=== PATIENT | male | born 1965 | race Caucasian/White ===

== ENCOUNTER → 2017-10-21 00:46 | Outpatient (CLI) | payer BC, SELFPAY ==
[2017-10-21 15:17] LABS: TSH (W/Ref FT4) 8.45 uIU/mL (0.358-3.74)
[2017-10-21 15:36] LABS: FREE T4 1.06 ng/dL (0.76-1.46)
[2017-10-24 10:04] LABS: PSA, Screening 2.1 ng/ml (0-3.5)
[2017-10-24 12:45] LABS: Hepatitis C Ab w Rflx HCV PCR Negative (NEGAT)
== END ==
PROVIDERS: Family Medicine; PCP Family Medicine; Visit Provider Family Medicine
DX: E03.9 Hypothyroidism, unspecified (principal); Z12.5 Encounter for screening for malignant neoplasm of prostate; Z11.59 Encounter for screening for other viral diseases
CPT/HCPCS: 36415; 84153; 86803; 84439; 84443

== ENCOUNTER 2018-10-20 02:05 | Outpatient (CLI) | payer BC, SELFPAY ==
--- NOTE | 2018-10-20 15:15 | DI.CTLCSR_ITS ---
SYMPTOMS/DIAGNOSIS: 28 PACK YEAR HX SMOKER, F17.[address] FOR LUNG CANCER SCREENING: A low dose screening exam was performed. There are no prior comparison exams. The heart size is normal. No significant coronary artery or aortic calcifications are seen. There are no pleural or pericardial effusions or evidence of adenopathy. There are minimal underlying emphysematous changes. There are no significant fibrotic changes. No pulmonary nodules are identified. IMPRESSION: Lung RADS Category I, negative. Annual low dose screening CT is recommended.
[2018-10-20 16:30] LABS: Calculated LDL 137 mg/dL; Cholesterol 201 mg/dL (50-200); Glucose 93 mg/dL (70-100); HDL Cholesterol 38 mg/dL (40-60); Magnesium 1.8 mg/dL (1.8-2.4); Triglyceride 131 mg/dL (30-150)
[2018-10-20 17:52] LABS: TSH (W/Ref FT4) 10.67 uIU/mL (0.36-3.74)
[2018-10-20 18:16] LABS: FREE T4 0.92 ng/dL (0.76-1.46)
== END 2018-10-20 02:25 ==
PROVIDERS: PCP Family Medicine; Visit Provider Family Medicine
DX: Z12.2 Encounter for screening for malignant neoplasm of respiratory organs (principal); F17.200 Nicotine dependence, unspecified, uncomplicated; J43.9 Emphysema, unspecified; E03.9 Hypothyroidism, unspecified; K21.9 Gastro-esophageal reflux disease without esophagitis; Z13.1 Encounter for screening for diabetes mellitus
CPT/HCPCS: 36415; 80061; 82947; 83721; G0297; 83735; 84439; 84443

== ENCOUNTER 2019-11-06 01:05 | Outpatient (CLI) | payer BC, SELFPAY ==
--- NOTE | 2019-11-06 06:15 | DI.US_ITS ---
EXAM: US AAA SCREENING CLINICAL HISTORY: use of tobacco/ screening FOR AAA,F17.200 COMPARISON: CT CT CHEST LUNG CANCER SCREEN from 10/20/2018 FINDINGS: Abdominal Aorta: Proximal: 2.7 cm Iliacs: Right: 1.4 cm Left: 1.2 cm IMPRESSION: No evidence of abdominal aortic aneurysm. DATA REPOSITORY:
--- NOTE | 2019-11-06 06:15 | DI.CTLCSR_ITS ---
EXAM: CT CHEST LUNG CANCER SCREEN CLINICAL HISTORY: Screening for lung cancer,CURRENT SMOKER, F17.200 TECHNIQUE: Imaging Protocol: Axial computed tomography images with coronal and sagittal reformatted images were created and reviewed COMPARISON: CT CT CHEST LUNG CANCER SCREEN from 10/20/2018 FINDINGS: Tracheobronchial tree: Mild bronchiectasis at the medial right lung base. Mediastinum and Judy: No dominant adenopathy or fluid collection. Pulmonary parenchyma: There are mild emphysematous changes. There is a focal peripheral area of tree -in-bud opacities in the inferior right lower but no evidence of a mass. Lung Nodules: None. Pleura: No effusion or pneumothorax. Heart: The heart is not dilated. No coronary artery calcifications are seen. Aorta: Thoracic aorta non-dilated. Upper abdomen: Unremarkable. Bones: Within normal limits. Soft Tissues: Unremarkable. IMPRESSION: Peripheral area of tree-in-bud opacities in the right upper lobe may be secondary to infectious or in flammatory causes. Lung RADS Cat 1 - Negative: No nodules and definitely benign nodules Lung-RADS 1.0 CATEGORIES: Category 0 - Prior chest CT exam(s) being located for comparison. Category 1 - Annual screening in 12 months. No nodules or definitely benign nodules. Category 2 - Annual screening in 12 months. Benign appearance. Nodules with low likelihood of becomin g active cancer. Category 3 - 6-month follow-up. Probably benign. Short-term follow-up suggested. Nodules with low lik elihood of becoming active cancer. Category 4A - 3-month follow-up and CT/PET if >8 mm in size. Suspicious finding. Findings which requi re additional testing. Category 4B - Findings which require additional testing and tissue sampling. Suspicious finding. C Added to Any of the Above - History of prior lung cancer screening. S Added to Any of the Above - Significant unexpected other finding. RADIATION DOSE DELIVERED: 95.26mGy.cm Total DLP DATA REPOSITORY: All CT scans at this facility are submitted to the National Radiology Data Registry (NRDR) Dose Index Registry (DIR) with the [employer] (ACR). RADIATION OPTIMIZATION: All CT scans at this facility use at least one of these dose optimization te chniques: automated exposure control; mA and/or kV adjustment per patient size (includes targeted exa ms where dose is matched to clinical indication); or iterative reconstruction.
== END 2019-11-06 01:25 ==
PROVIDERS: PCP Family Medicine; Visit Provider Family Medicine
DX: Z12.2 Encounter for screening for malignant neoplasm of respiratory organs (principal); F17.200 Nicotine dependence, unspecified, uncomplicated; R91.8 Other nonspecific abnormal finding of lung field
CPT/HCPCS: 76706; G0297

== ENCOUNTER 2019-12-07 02:12 | Outpatient (CLI) | payer BC, SELFPAY ==
[2019-12-07 17:34] LABS: Calculated LDL 180 mg/dL (<100); Cholesterol 238 mg/dL (<200); Glucose 82 mg/dL (74-106); HDL Cholesterol 40 mg/dL (40-60); Triglyceride 91 mg/dL (<150)
[2019-12-07 18:10] LABS: FREE T4 1.01 ng/dL (0.76-1.46)
== END 2019-12-07 02:32 ==
PROVIDERS: PCP Family Medicine; Visit Provider Family Medicine
DX: E03.9 Hypothyroidism, unspecified (principal); E78.5 Hyperlipidemia, unspecified; R73.9 Hyperglycemia, unspecified; Z12.5 Encounter for screening for malignant neoplasm of prostate; Z72.0 Tobacco use
CPT/HCPCS: 36415; 80061; 82947; 84153; 84439; 84443

== ENCOUNTER 2020-11-14 02:43 | Outpatient (CLI) | payer BC, SELFPAY ==
[2020-11-14 16:13] LABS: Calculated LDL 103 mg/dL (<100); Cholesterol 154 mg/dL (<200); HDL Cholesterol 42 mg/dL (40-60); TSH (W/Ref FT4) 6.06 uIU/mL (0.36-3.74); Triglyceride 49 mg/dL (<150)
[2020-11-14 16:35] LABS: FREE T4 1.13 ng/dL (0.76-1.46)
[2020-11-14 18:45] LABS: CREATININE 1.2 mg/dL (0.70-1.30)
== END 2020-11-14 02:44 | disposition home or self-care (01) ==
LOC: LBO 02:43
PROVIDERS: PCP Family Medicine; Visit Provider Family Medicine
DX: R91.8 Other nonspecific abnormal finding of lung field; E03.9 Hypothyroidism, unspecified; E78.5 Hyperlipidemia, unspecified
CPT/HCPCS: 36415; 80061; 82565; 84439; 84443

== ENCOUNTER 2021-11-20 01:55 | Outpatient (CLI) | payer BC, SELFPAY ==
--- OUTSIDE RECORDS SUMMARY | 2021-11-20 02:07 | XMS_ITS | Encounter Summary ---
:1965 Author Organization [facility] Address [address] [place] [address] Care Team Providers Name Role Phone Unknown, Provider Primary Care Provider Encounter Details Date Type Department Care Team Description 04/25/2009 Orders Only [facility] Pk Frerari DO Laboratory Services - [address] [place] [address] [address] [facility] [place] [address] [phone] Social History Tobacco Use Types Packs/Day Years Used Date Never Assessed Sex Assigned at Date Recorded Not on file documented as of this encounter Plan of Treatment Not on filedocumented as of this encounter Procedures Procedure Name Priority Date/Time Associated Diagnosis Comme [facility] SURGICAL PATHOLOGY Routine 04/25/2009 0:00 EST Re sults for this procedure are i n the results section. documented in this encounter Results SURGICAL PATHOLOGY (04/25/2009 0:00 EST) Pathologist [facility] Pathology SURGICAL PATHOLOGY REPORT ? OFELIA WEBB Report: Reports generated via electr ITDatabase interface contain original data; ? LAB however they are lacking the format of the original report. ? Caution should be taken when reading/interpreting unformatted reports. ? Name: ? CRISTY, JUSTIN D JR ? Accession #: ? [id number] ? : ? 1965 (Age: 43) ??M ? Collec t Date: ? 04/25/2009 ? Location: ? [facility] ? Re ceive Date: ? 04/25/2009 ? Provider: PK MITZ DO ? Copy to: MADISYN VOZZELLI MD ? Final Pathologic Diagnosis: ? A. ?Duodenum, s econd portion, biopsy: ? 1. ?Acute pepti c duodenitis. See comment. ? B. ?Stomach, an trum, biopsy: ? 1. ?Antral-type gastric mucosa with mild, chronic inflammation and ? intestinal metaplasia. ??See comment. ? 2. ? No Helicobacter pyl emeli-like organisms identified by immunohistochemistry. See comment. ? 3. ? No dysplasia is scout ntified. ? C. ?Esophagogas tric junction, biopsy: ? 1. ?Gastric-typ e mucosa with no specific pathologic features. ? 2. ? No Helicobacter pyl emeli-like microorganisms identified by routine H & E ?? stains. ? D. ?Esophagus, 36 cm, biopsy: ? 1. ?Squamous mu cosa with no specific pathologic features. ? Comment: ? An aggregate of eosin ophils is identified in the lamina propria of the ? antral biopsy (specimen B). The clinical significance of this finding is ? unclear. Clinical correlatio n is essential. Immunohistochemical staining was ? performed on this case to fu rther characterize the nature the lesion in specimen B and to shed further light on the potential etiology of the pathologic findings in the duodenal biopsy (spec imen A). ??Positive and negative controls stained ? appropriately. ? Block ?Antibody (Clone) ? Result ? B ?H. py giovanny (polyclonal, [facility]) ? Negative ? NOTE: ??One or more of the reagents used in immunohistochemical testing in this case may not have been clear ed or approved by the U.S. Food and Drug ? Administration (FDA). ??The FDA has determined that such clearance or approval is not necessary. ??These tests are used for clinical purposes. ??They should not be regarded as investigational or for research. ??These reagents' ??performance ? characteristics have been de termined by [facility]. ??This ? laboratory is certified unde r the Clinical Laboratory Improvement Amendments of 1988 (CLIA-88) as qualified to perform high complexity clinical laboratory ? testing. ? Document reviewed and electr onically signed by: ? JORDANA FLORES MD ? Report ??Date: 05/04/2009 21 :39 ? By the signature above, the attending physician certifies that he/she has ? personally conducted a gross and/or microscopic examination of the described ? specimens and rendered or co nfirmed the above diagnosis. ? Specimen(s) Received: ? A. ?2nd portion of duodenum ? B. ? Antrum ? C. ? R/O Shirley's at EG J ? D. ? Bx at 36 cm ? Clinical History: ? Top of fold erythemat ous; ? thickened duodenum on CT ? Gross Description: ? Received in Andrea' s solution labelled Cristy Justin and 2nd ? portion of duodenum are thr ee pink-torres irregular soft tissues ranging from 0.1 x 0.1 x 0.1 cm to 0.3 x 0.2 x 0.1 cm. ??Submitted in toto as (A). ? Received in [employer]'s solut ion labelled Justin Muniz and antrum are two pink-torres irregular soft tiss ues, 0.3 x 0.1 x 0.1 cm and 0.3 x 0.2 x 0.1 cm. ? Submitted in toto as (B). ? Received in Andrea's solut ion labelled Henning, Justin and R/O Shirley's ?? at EGJ is a single 0.2 x 0. 2 x 0.2 cm pink-torres irregular soft tissue. ? Submitted in toto as (C). ? Received in Andrea's solut ion labelled Cristy, Justin and biopsy at 36 ?? cm is a single 0.2 x 0.1 x 0.1 cm pink-torres irregular soft tissue. ??Submitted in toto as (D). ??(Sejal Loaiza)/ val ? End of Report ? Specimen Performing Organization Address City/[facility]/ZIP Code Phon e Number [facility] [address] [place] [address] SERVICES [facility] [address] [place] [address] documented in this encounter Visit Diagnoses Not on filedocumented in this encounter Care Teams Quality Assurance Clerk Relationship Specialty Start Date End Date Unknown, Provider, PCP - General 04/25/09 documented as of this encounter
--- OUTSIDE RECORDS SUMMARY | 2021-11-20 02:07 | XMS_ITS | Clinical Summary ---
:1965 Author Organization [facility] Address [address] [place] [address] Care Team Providers Name Role Phone Unknown, Provider Primary Care Provider Social History Tobacco Use Types Packs/Day Years Used Date Never Assessed Sex Assigned at Date Recorded Not on file Plan of Treatment Not on file Care Teams Cardiac Cath Technician Relationship Specialty Start Date End Date Unknown, Provider, PCP - General 04/25/09
--- OUTSIDE RECORDS SUMMARY | 2021-11-20 02:07 | XMS_ITS | Encounter Summary ---
:1965 Author Organization [facility] Address [address] [place] [address] Care Team Providers Name Role Phone Unknown, Provider Primary Care Provider Encounter Details Date Type Department Care Team Description 12/08/2019 Lab Requisition [facility] Outr Resulting Lab, Pathology & Laboratory Provider [facility] [address] [place] [address] Social History Tobacco Use Types Packs/Day Years Used Date Never Assessed Sex Assigned at Date Recorded Not on file documented as of this encounter Plan of Treatment Not on filedocumented as of this encounter Procedures Procedure Name Priority Date/Time Associated Comments Diagnosis PSA TOTAL, Routine 12/07/2019 16:15 Results for this DIAGNOSTIC EDT procedure are i n the results section. documented in this encounter Results PSA TOTAL, DIAGNOSTIC (12/07/2019 16:15 EDT) Pathologist Sig nature PSA 1.0 0.0 - 3.5 ng/mL [facility] Specimen Blood - Venous blood (substance) Narrative [facility] - 12/10/2019 12:37 EDT NOTE: Serum PSA concentration should not be in terpreted as absolute evidence for the presence or absence of malignant disease. Assayed on Siemens ADVIA Centaur XPT usi ng chemiluminescent technology.??Values obtained by using different assay methods cannot be used interchangeably. Performing Organization Address City/State/ZIP Code Phon e Number [facility] [address] [place] [address] SERVICES documented in this encounter Visit Diagnoses Not on filedocumented in this encounter Care Teams Client Solutions Director Relationship Specialty Start Date End Date Unknown, Provider, PCP - General 04/25/09 documented as of this encounter
[2021-11-20 15:25] LABS: CREATININE 1.2 mg/dL (0.70-1.30); Calculated LDL 108 mg/dL (<100); Cholesterol 167 mg/dL (<200); HDL Cholesterol 43 mg/dL (40-60); Potassium 4.1 mmol/L (3.5-5.1); TSH (W/Ref FT4) 11.74 uIU/mL (0.36-3.74); Triglyceride 81 mg/dL (<150)
[2021-11-20 15:43] LABS: FREE T4 1.15 ng/dL (0.76-1.46)
[2021-11-20 22:31] LABS: PSA, Screening 0.8 ng/mL (<=3.5)
== END 2021-11-20 01:56 | disposition home or self-care (01) ==
LOC: LBO 01:55
PROVIDERS: PCP Family Medicine; Visit Provider Family Medicine
DX: E78.5 Hyperlipidemia, unspecified (principal); E03.9 Hypothyroidism, unspecified; I10 Essential (primary) hypertension; Z12.5 Encounter for screening for malignant neoplasm of prostate
CPT/HCPCS: 36415; 80061; 84153; 82565; 84132; 84439; 84443

== ENCOUNTER 2022-07-09 00:49 | Outpatient (CLI) | payer BC, SELFPAY ==
--- NOTE | 2022-07-09 08:15 | DI.RAD_ITS ---
Exam(s) XR LUMBAR SPINE COMPLETE EXAM: XR LUMBAR SPINE COMPLETE CLINICAL HISTORY: low back pain,M54.50. TECHNIQUE: 2D digital imaging was performed. COMPARISON: No exams were available for comparison FINDINGS: Five views: No evidence of acute fracture, listhesis, nor pars defects. There is multilevel disc space narrowing . Most evident at L2-3 level where there is asymmetric narrowing on the lateral left side of the dis c space. Other disc space narrowing is more uniform. Mild degenerative changes in the facet joints. No significant scoliosis. SI joints unremarkable. No osseous lesions. IMPRESSION: Multilevel degenerative disc disease. Asymmetric disc space narrowing on the left side of L2-3 level. This may result in asymmetric forami nal stenosis on the left side at this level. DATA REPOSITORY: RADIATION DOSE DELIVERED:
== END 2022-07-09 01:09 ==
LOC: DI 00:50
PROVIDERS: PCP Family Medicine; Visit Provider Family Medicine
DX: G89.29 Other chronic pain (principal); M54.50 Low back pain, unspecified
CPT/HCPCS: 72110

== ENCOUNTER 2022-07-09 02:07 | Outpatient (CLI) | payer BC, SELFPAY ==
[2022-07-09 15:21] LABS: Anion Gap 7.1 mmol/L (3-11); BUN 13 mg/dL (7-18); CO2 25.9 mmol/L (21.0-32.0); CREATININE 1.3 mg/dL (0.70-1.30); Calcium 9.1 mg/dL (8.5-10.1); Chloride 104 mmol/L (98-107); Estimated GFR 63.68 (mL/min/1.73m2); Glucose 92 mg/dL (74-106); Potassium 4.1 mmol/L (3.5-5.1); Sodium 137 mmol/L (136-145); TSH (W/Ref FT4) 6.77 uIU/mL (0.36-3.74)
[2022-07-09 15:28] LABS: Hemoglobin A1C 5.7 % (<5.7)
[2022-07-09 15:58] LABS: FREE T4 1.27 ng/dL (0.76-1.46)
== END 2022-07-09 02:08 | disposition home or self-care (01) ==
LOC: LBO 02:07
PROVIDERS: Family Medicine; PCP Family Medicine; Visit Provider Family Medicine
DX: E03.9 Hypothyroidism, unspecified (principal); E66.9 Obesity, unspecified; R73.01 Impaired fasting glucose
CPT/HCPCS: 36415; 80048; 83036; 84439; 84443

== ENCOUNTER → 2022-10-29 01:00 | Outpatient (CLI) | payer BC, SELFPAY ==
--- NOTE | 2022-10-29 | DI.MRI_ITS ---
Exam(s) MR LUMBAR SPINE WO EXAM: MR LUMBAR SPINE WO CLINICAL HISTORY: CHRONIC RACHLE LOW BACK PAIN WITH LT SIDED SCIATICA, M54.2, G89.29. TECHNIQUE: Multiplanar multisequence MRI of the Lumbar spine was performed. COMPARISON: CR XR LUMBAR SPINE COMPLETE from 07/09/2022 FINDINGS: Bones: The last intervertebral disc space is designated the L5/S1 level for the numbering purpose of this examination. The vertebral body heights are well maintained. Alignment is satisfactory. The ma rrow signal characteristics are unremarkable. Degenerative signal changes in the endplates at the L2 -3 level.. Cord: The conus tip ends at the T12 level. It is of normal size and signal intensity. T12-L1: No disc herniations or bulges are present. No central spinal canal or neural foraminal stenos is. L1-2: Small endplate osteophytes. Slight disc bulging. No central spinal canal or neural foraminal stenosis. L2-3: Mild to moderate loss of disc height, eccentric toward the left. Mild broad-based disc bulging . Mild facet joint degenerative changes. Mild left neural foraminal narrowing. No central canal st enosis.. L3-4: Minimal disc bulging. No central spinal canal or neural foraminal stenosis. L4-5: Minimal disc bulging. No central spinal canal or neural foraminal stenosis. L5-S1: No disc herniations or bulges are present. Mild facet degenerative changes. No central spina l canal or neural foraminal stenosis. The visualized SI joints and sacrum are well maintained. Soft tissues: The paraspinal soft tissues are unremarkable. IMPRESSION: Degenerative disc changes greatest at L2-3 eccentric toward the left. Mild left neural foraminal elliot rowing at this level. No central canal stenosis. No focal disc herniation. DATA REPOSITORY:
== END ==
PROVIDERS: PCP Nurse Practitioner Family; Visit Provider Nurse Practitioner
DX: M51.36 Other intervertebral disc degeneration, lumbar region (principal); M54.2 Cervicalgia
CPT/HCPCS: 72148

== ENCOUNTER 2022-12-03 01:49 | Outpatient (CLI) | payer BC, SELFPAY ==
[2022-12-03 12:33] LABS: Calculated LDL 82 mg/dL (<100); Cholesterol 133 mg/dL (<200); HDL Cholesterol 40 mg/dL (40-60); Triglyceride 55 mg/dL (<150)
== END 2022-12-03 01:50 | disposition home or self-care (01) ==
LOC: LOS 01:49
PROVIDERS: PCP Nurse Practitioner Family; Visit Provider Nurse Practitioner Family
DX: Z13.220 Encounter for screening for lipoid disorders (principal)
CPT/HCPCS: 36415; 80061

== ENCOUNTER 2023-04-27 16:33 | Outpatient (CLI) | payer BC, SELFPAY ==
--- NOTE | 2023-04-27 06:00 | DI.RAD_ITS ---
Exam(s) XR PAIN CLINIC LUMBAR SP 2V EXAM: XR PAIN CLINIC LUMBAR SP 2V CLINICAL HISTORY: Dx: Lumbar Radiculopathy TECHNIQUE: 2D and realtime digital imaging was performed. Radiologist not present. CONTRAST MATERIAL: None. COMPARISON: No exams were available for comparison FINDINGS: Fluoroscopy was provided for pain management therapy. Please refer to procedure report or details. Radiation Exposure Index: Ka,r=7.16 mGy IMPRESSION: As above. RADIATION DOSE DELIVERED:
[2023-04-27 16:59] VITALS: BP 135/83; PULSE 79; RESP 20; TEMP 36.7; O2SAT 98
--- NOTE | 2023-04-27 17:23 | PDOC.PAIN_ITS ---
Date of service: 04/27/23 Time of Service: 17:23 Pain Managment Procedure Note Procedure Note Procedure Note: PROCEDURE NOTE LUMBAR EPIDURAL STEROID INJECTION Date of Service: April 27, 2023 Patient:Justin Huber? Provider: Adithya Butler DO, MPH Justin Muniz has been referred to the [facility] for a lumbar epidural steroid injection. Pre-operative diagnosis: Lumbosacral Radiculopathy Post-operative diagnosis: Same Pre-Procedure Pain: VAS= 5 /10 Comments: I previously evaluated the patient in the office. Justin was interviewed and the medical record was reviewed.? There were no medical, pharmacologic, radiographic or other structural contraindications to attempting fluoroscopically guided Lumbar epidural steroid injection.? Risks, potential side effects, indications, and potential benefits of the procedure were reviewed with Justin.? Questions and concerns were addressed.? After it was clear that Justin was fully informed about the procedure, the printed consent form was signed by the patient and myself.? Justin was placed in the prone position on the fluoroscopy table and automated blood pressure cuff and pulse oximeter applied. The skin entry point for entering/approaching the epidural space for the lumbar epidural steroid injection was marked. Following thorough chlorhexadine preparation of the skin and draping and 1% lidocaine infiltration of the skin entry point and subcutaneous tissues, an 18 gauge Touhy needle was placed and advanced under fluoroscopic guidance and with loss of resistance technique into the L5-S1 epidural space. Needle tip placement and depth were aided and confirmed by fluoroscopy. There was no paresthesia or return of blood or CSF through the needle. 1 mls of Omnipaque 240 was injected with clear epidural spread confirmed with fluoroscopy. 80 mg of Depo-Medrol was? injected. This was followed by 1 ml of preservative-free normal saline to flush the steroid out of the needle. There was no unusual discomfort expressed by Justin. The needle was withdrawn without difficulty. (49 mls of Omnipaque was wasted) Justin was observed and was without hemodynamic, neurologic, or allergic reactions.? Fluoroscopic images were digitally archived. Justin's vital signs were stable throughout the procedure and were as recorded in nursing records. Follow up plans and appointments were discussed with Justin. Post procedure instruction was given as documented in nursing records and having met discharge criteria Justin was discharged from the [facility] Management Center. COMMENTS: No apparent complications. Post-procedure pain: VAS= 0/10. Justin to contact [facility] as needed. If at least 50% improvement in pain and/or function for at least 3 months is achieved, this procedure can be repeated. I personally performed this entire procedure. ADITHYA BUTLER DO, MPH ABPMR-subspecialty board certification in Pain Medicine [facility]
[2023-04-27 17:29] VITALS: BP 120/80; PULSE 77; RESP 20; O2SAT 97
[2023-04-27] MEDS: Epidural Tray 1 EACH MC (17:30)
[2023-04-27] MEDS: Omnipaque 240 MG/ML 50 ML BTL IJ (17:30)
[2023-04-27] MEDS: methylPREDNISolone ACETATE 80 MG/ML VIAL IJ (17:30)
== END 2023-04-27 16:34 | disposition home or self-care (01) ==
PROVIDERS: PCP Nurse Practitioner Family; Visit Provider Preventive Medicine Occupational Medicine
DX: M54.17 Radiculopathy, lumbosacral region (principal)
CPT/HCPCS: 00123; 62323; 72100; J1040; Q9967

== ENCOUNTER 2023-08-31 11:40 | Outpatient (CLI) | payer BC, SELFPAY ==
[2023-08-31 11:58] VITALS: BP 127/83; PULSE 65; RESP 20; TEMP 36.7; O2SAT 96
[2023-08-31 12:29] VITALS: BP 122/74; PULSE 71; RESP 28; O2SAT 100
--- NOTE | 2023-08-31 12:29 | PDOC.PAIN ---
Date of service: 08/31/23 Time of Service: 12:29 Pain Managment Procedure Note Procedure Note Procedure Note: PROCEDURE NOTE LUMBAR EPIDURAL STEROID INJECTION Date of Service: August 31, 2023 Patient:Justin Huber? Provider: Adithya Butler DO, MPH Justin Muniz has been referred to the [facility] Center for a lumbar epidural steroid injection. Pre-operative diagnosis: Lumbosacral Radiculopathy Post-operative diagnosis: Same Pre-Procedure Pain: VAS= 7 /10 Comments: His last lumbar epidural steroid injection was on 04/27/23 and he received >50% pain relief for >3 months. Justin was interviewed and the medical record was reviewed.? There were no medical, pharmacologic, radiographic or other structural contraindications to attempting fluoroscopically guided Lumbar epidural steroid injection.? Risks, potential side effects, indications, and potential benefits of the procedure were reviewed with Justin.? Questions and concerns were addressed.? After it was clear that Justin was fully informed about the procedure, the printed consent form was signed by the patient and myself.? Justin was placed in the prone position on the fluoroscopy table and automated blood pressure cuff and pulse oximeter applied. The skin entry point for entering/approaching the epidural space for the lumbar epidural steroid injection was marked. Following thorough chlorhexadine preparation of the skin and draping and 1% lidocaine infiltration of the skin entry point and subcutaneous tissues, an 18 gauge Touhy needle was placed and advanced under fluoroscopic guidance and with loss of resistance technique into the L5-S1 epidural space. Needle tip placement and depth were aided and confirmed by fluoroscopy. There was no paresthesia or return of blood or CSF through the needle. 1 mls of Omnipaque 240 was injected with clear epidural spread confirmed with fluoroscopy. 80 mg of Depo-Medrol was? injected. This was followed by 1 ml of preservative-free normal saline to flush the steroid out of the needle. There was no unusual discomfort expressed by Justin. The needle was withdrawn without difficulty. (49 mls of Omnipaque was wasted) Justin was observed and was without hemodynamic, neurologic, or allergic reactions.? Fluoroscopic images were digitally archived. Justin's vital signs were stable throughout the procedure and were as recorded in nursing records. Follow up plans and appointments were discussed with Justin. Post procedure instruction was given as documented in nursing records and having met discharge criteria Justin was discharged from the [facility] Management Center. COMMENTS: No apparent complications. Post-procedure pain: VAS= 0/10. Justin to contact [facility] as needed. If at least 50% improvement in pain and/or function for at least 3 months is achieved, this procedure can be repeated. I personally performed this entire procedure. ADITHYA BUTLER DO, MPH ABPMR-subspecialty board certification in Pain Medicine [facility]
[2023-08-31] MEDS: Epidural Tray 1 EACH MC (12:30)
--- NOTE | 2023-08-31 12:30 | DI.RAD_ITS ---
Exam(s) XR PAIN CLINIC LUMBAR SP 2V EXAM: XR PAIN CLINIC LUMBAR SP 2V CLINICAL HISTORY: Dx: Lumbar Radiculopathy TECHNIQUE: 2D and realtime digital imaging was performed. Radiologist not present. CONTRAST MATERIAL: None. COMPARISON: No exams were available for comparison FINDINGS: Fluoroscopy was provided for pain management therapy. Please refer to procedure report or details. Radiation Exposure Index: Ka,r=6.67 mGy IMPRESSION: As above. RADIATION DOSE DELIVERED:
[2023-08-31] MEDS: Omnipaque 240 MG/ML 50 ML BTL IJ (12:31)
[2023-08-31] MEDS: methylPREDNISolone ACETATE 80 MG/ML VIAL IJ (12:31)
== END 2023-08-31 11:41 | disposition home or self-care (01) ==
LOC: PC 11:40
PROVIDERS: PCP Nurse Practitioner Family; Visit Provider Preventive Medicine Occupational Medicine
DX: M54.17 Radiculopathy, lumbosacral region (principal)
CPT/HCPCS: 62323; 72100; J1010; Q9967

== ENCOUNTER 2023-11-25 15:25 | Outpatient (CLI) | payer BC, SELFPAY ==
[2023-11-25 15:29] LABS: Hemoglobin A1C 5.5 % (<5.7)
[2023-11-25 15:57] LABS: Calculated LDL 102 mg/dL (<100); Cholesterol 156 mg/dL (<200); HDL Cholesterol 41 mg/dL (40-60); TSH (W/Ref FT4) 5.56 uIU/mL (0.36-3.74); Triglyceride 68 mg/dL (<150)
[2023-11-25 16:28] LABS: FREE T4 1.18 ng/dL (0.76-1.46)
== END 2023-11-25 15:26 | disposition home or self-care (01) ==
LOC: LBO 15:32
PROVIDERS: PCP Nurse Practitioner Family; Visit Provider Nurse Practitioner Family
DX: Z13.1 Encounter for screening for diabetes mellitus (principal); E03.9 Hypothyroidism, unspecified; Z13.220 Encounter for screening for lipoid disorders; E78.5 Hyperlipidemia, unspecified
CPT/HCPCS: 36415; 80061; 83036; 84439; 84443

== ENCOUNTER 2023-12-14 14:28 | Outpatient (CLI) | payer BC, SELFPAY ==
--- NOTE | 2023-12-14 06:00 | DI.RAD_ITS ---
Exam(s) XR PAIN CLINIC LUMBAR SP 2V EXAM: XR PAIN CLINIC LUMBAR SP 2V CLINICAL HISTORY: DX: Lumbar Radiculopathy TECHNIQUE: 2D and realtime digital imaging was performed. Radiologist not present. CONTRAST MATERIAL: None. COMPARISON: No exams were available for comparison FINDINGS: Fluoroscopy was provided for pain management therapy. Please refer to procedure report or details. Radiation Exposure Index: Ka,r=8.46 mGy IMPRESSION: As above. RADIATION DOSE DELIVERED:
[2023-12-14 15:15] VITALS: BP 138/82; PULSE 79; RESP 20; TEMP 37.2; O2SAT 99
[2023-12-14 15:42] VITALS: PULSE 73; RESP 22; O2SAT 98
[2023-12-14 15:45] VITALS: BP 149/79; PULSE 74; RESP 19; O2SAT 99
[2023-12-14 15:46] VITALS: BP 135/83; PULSE 70; PULSE 78; RESP 23; O2SAT 100
[2023-12-14 15:47] VITALS: PULSE 73; RESP 24; O2SAT 98
[2023-12-14 15:50] VITALS: PULSE 77; RESP 28; O2SAT 97
[2023-12-14] MEDS: Epidural Tray 1 EACH MC (15:55)
[2023-12-14] MEDS: methylPREDNISolone ACETATE 80 MG/ML VIAL IJ (15:55)
[2023-12-14] MEDS: Omnipaque 240 MG/ML 50 ML BTL IJ (15:55)
--- NOTE | 2023-12-14 15:57 | PDOC.PAIN_ITS ---
Date of service: 12/14/23 Time of Service: 15:57 Pain Managment Procedure Note Procedure Note Procedure Note: PROCEDURE NOTE LUMBAR EPIDURAL STEROID INJECTION Date of Service: December 14, 2023 Patient:Justin Huber? Provider: Adithya Butler DO, MPH Justin Muniz has been referred to the [facility] for a lumbar epidural steroid injection. Pre-operative diagnosis: Lumbosacral Radiculopathy ICD-10 M54.16 Post-operative diagnosis: Same Pre-Procedure Pain: VAS= 6 /10 Comments: He last had this procedure on 08/31/23 and had >3 months of >50% functional improvement. Justin was interviewed and the medical record was reviewed.? There were no medical, pharmacologic, radiographic or other structural contraindications to attempting fluoroscopically guided Lumbar epidural steroid injection.? Risks, potential side effects, indications, and potential benefits of the procedure were reviewed with Justin.? Questions and concerns were addressed.? After it was clear that Justin was fully informed about the procedure, the printed consent form was signed by the patient and myself.? Justin was placed in the prone position on the fluoroscopy table and automated blood pressure cuff and pulse oximeter applied. The skin entry point for entering/approaching the epidural space for the lumbar epidural steroid injection was marked. Following thorough chlorhexadine preparation of the skin and draping and 1% lidocaine infiltration of the skin entry point and subcutaneous tissues, an 18 gauge Touhy needle was placed and advanced under fluoroscopic guidance and with loss of resistance technique into the L5-S1 epidural space. Needle tip placement and depth were aided and confirmed by fluoroscopy. There was no paresthesia or return of blood or CSF through the needle. 1 mls of Omnipaque 240 was injected with clear epidural spread confirmed with fluoroscopy. 80 mg of Depo-Medrol was? injected. This was followed by 1 ml of preservative-free normal saline to flush the steroid out of the needle. There was no unusual discomfort expressed by Justin. The needle was withdrawn without difficulty. (49 mls of Omnipaque was wasted) Justin was observed and was without hemodynamic, neurologic, or allergic reactions.? Fluoroscopic images were digitally archived. Justin's vital signs were stable throughout the procedure and were as recorded in nursing records. Follow up plans and appointments were discussed with Justin. Post procedure instruction was given as documented in nursing records and having met discharge criteria Justin was discharged from the [facility]. COMMENTS: No apparent complications. Post-procedure pain: VAS= 0/10. Justin to contact [facility] as needed. If at least 50% improvement in pain and/or function for at least 3 months is achieved, this procedure can be repeated. I personally performed this entire procedure. ADITHYA BUTLER DO, MPH ABPMR-subspecialty board certification in Pain Medicine [facility]
== END 2023-12-14 14:29 | disposition home or self-care (01) ==
LOC: PC 14:29
PROVIDERS: PCP Nurse Practitioner Family; Visit Provider Preventive Medicine Occupational Medicine
DX: M54.16 Radiculopathy, lumbar region (principal)
CPT/HCPCS: 62323; 72100; J1010; Q9967

== ENCOUNTER 2024-05-15 15:18 | Outpatient (CLI) | payer BC, SELFPAY ==
[2024-05-15 16:52] LABS: Calculated LDL 79 mg/dL (<100); Cholesterol 147 mg/dL (<200); HDL Cholesterol 42 mg/dL (40-60); TSH (W/Ref FT4) 2.97 uIU/mL (0.36-3.74); Triglyceride 133 mg/dL (<150)
[2024-05-15 18:01] LABS: Hemoglobin A1C 5.4 % (<5.7)
[2024-05-15 23:10] LABS: PSA, Screening 0.8 ng/mL (<=4.5)
== END 2024-05-15 15:19 | disposition home or self-care (01) ==
LOC: LBO 15:20
PROVIDERS: PCP Nurse Practitioner Family; Visit Provider Nurse Practitioner Family
DX: E03.9 Hypothyroidism, unspecified (principal); Z12.5 Encounter for screening for malignant neoplasm of prostate; Z13.1 Encounter for screening for diabetes mellitus; Z13.220 Encounter for screening for lipoid disorders; R35.0 Frequency of micturition
CPT/HCPCS: 36415; 80061; 84153; 83036; 84443

== ENCOUNTER 2024-05-23 13:08 | Outpatient (CLI) | payer BC, SELFPAY ==
--- NOTE | 2024-05-23 06:00 | DI.RAD_ITS ---
Exam(s) XR PAIN CLINIC LUMBAR SP 2V EXAM: XR PAIN CLINIC LUMBAR SP 2V CLINICAL HISTORY: Dx: Lumbar Radiculopathy. TECHNIQUE: Fluoroscopy was provided for the referring physician for guidance with performing pain cl inic injection procedure. COMPARISON: No exams were available for comparison FINDINGS: Please see procedure note for details. Fluoro time: 16.7 seconds RADIATION DOSE DELIVERED: Ka,r=10.34 mGy
[2024-05-23 13:17] VITALS: BP 128/78; PULSE 91; RESP 20; TEMP 36.9; O2SAT 96
[2024-05-23 13:55] VITALS: PULSE 85; PULSE 86; O2SAT 99
[2024-05-23 13:56] VITALS: BP 134/75; PULSE 89; RESP 21; O2SAT 98
[2024-05-23 14:00] VITALS: PULSE 86; PULSE 87; RESP 29; O2SAT 95
[2024-05-23 14:01] VITALS: BP 137/81; PULSE 86
[2024-05-23] MEDS: Epidural Tray 1 EACH MC (14:05)
[2024-05-23] MEDS: methylPREDNISolone ACETATE 80 MG/ML VIAL IJ (14:05)
[2024-05-23] MEDS: Omnipaque 240 MG/ML 50 ML BTL IJ (14:05)
--- NOTE | 2024-05-23 14:23 | PDOC.PAIN_ITS ---
Date of service: 05/23/24 Time of Service: 14:23 Pain Managment Procedure Note Procedure Note Procedure Note: PROCEDURE NOTE LUMBAR EPIDURAL STEROID INJECTION Date of Service: May 23, 2024 Patient:Justin Huber? Provider: Adithya Butler DO, MPH Justin Muniz has been referred to the [facility] for a lumbar epidural steroid injection. Pre-operative diagnosis: Lumbosacral Radiculopathy ICD-10 M54.16 Post-operative diagnosis: Same Pre-Procedure Pain: VAS= 6 /10 Comments: he last had this procedure on 12/14/23 and had >4 months of >50% pain improvement and no complications. Justin was interviewed and the medical record was reviewed.? There were no medical, pharmacologic, radiographic or other structural contraindications to attempting fluoroscopically guided Lumbar epidural steroid injection.? Risks, potential side effects, indications, and potential benefits of the procedure were reviewed with Justin.? Questions and concerns were addressed.? After it was clear that Justin was fully informed about the procedure, the printed consent form was signed by the patient and myself.? Justin was placed in the prone position on the fluoroscopy table and automated blood pressure cuff and pulse oximeter applied. The skin entry point for ent ering/approaching the epidural space for the lumbar epidural steroid injection was marked. Following thorough chlorhexadine preparation of the skin and draping and 1% lidocaine infiltration of the skin entry point and subcutaneous tissues, an 18 gauge Touhy needle was placed and advanced under fluoroscopic guidance and with loss of resistance technique into the L5-S1 epidural space. Needle tip placement and depth were aided and confirmed by fluoroscopy. There was no paresthesia or return of blood or CSF through the needle. 1 mls of Omnipaque 240 was injected with clear epidural spread confirmed with fluoroscopy. 80 mg of Depo-Medrol was? injected. This was followed by 1 ml of preservative-free normal saline to flush the steroid out of the needle. There was no unusual discomfort expressed by Justin. The needle was withdrawn without difficulty. (49 mls of Omnipaque was wasted) Justin was observed and was without hemodynamic, neurologic, or allergic reactions.? Fluoroscopic images were digitally archived. Justin's vital signs were stable throughout the procedure and were as recorded in nursing records. Follow up plans and appointments were discussed with Justin. Post procedure instruction was given as documented in nursing records and having met discharge criteria Justin was discharged from the [facility]. COMMENTS: No apparent complications. Post-procedure pain: VAS= 1/10. Justin to contact [facility] as needed. If at least 50% improvement in pain and/or function for at least 3 months is achieved, this procedure can be repeated. I personally performed this entire procedure. ADITHYA BUTLER DO, MPH ABPMR-subspecialty board certification in Pain Medicine [facility] Coding Conscious Sedation used for procedure: No CPT Codes: Inj Spine L/S w/Imaging - [id number] ([id number] ~G) Additional Codes: Date of Service (17744) Date of service: 05/23/24
== END 2024-05-23 13:09 | disposition home or self-care (01) ==
LOC: PC 13:08
PROVIDERS: PCP Nurse Practitioner Family; Visit Provider Preventive Medicine Occupational Medicine
DX: M54.16 Radiculopathy, lumbar region (principal)
CPT/HCPCS: 62323; 72100; J1010; Q9967